=== PATIENT | female | born 1975 | race Native Hawaiian/Other Pacific Islander ===

== ENCOUNTER 2017-03-14 12:59 | Outpatient (CLI) | payer BC | END 2017-03-14 14:00 | disposition home or self-care (01) | LOC: MAMMO 12:59 | DX: Z12.31 Encounter for screening mammogram for malignant neoplasm of breast (principal) | CPT/HCPCS: G0202-TC ==

== ENCOUNTER 2017-06-13 07:38 | Observation (INO) | payer BC ==
[~2017-06-13] VITALS: Ht 162.6 cm; Wt 75.1 kg
[2017-06-13] VITALS (8 sets, daily range): BP systolic 119–182; BP diastolic 74–90; TEMP 98–98.7; Ht 162.6 cm; Wt 75.1 kg
[2017-06-13 08:47] LABS: PLATELET COUNT 477 K/uL (152-353)
[2017-06-13 08:54] LABS: POTASSIUM 3.9 mmol/L (3.6-5.2); SODIUM 137 mmol/L (136-145)
[2017-06-13 10:24] LABS: PARTIAL THROMBOPLASTIN TIME 25.6 SECONDS (24.5-33.6)
[2017-06-13] MEDS ORDERED: AMBIEN5 MG PO (15:19)
[2017-06-13] MEDS ORDERED: CRESTOR20 MG PO (15:20)
[2017-06-13] MEDS ORDERED: DOANS PO (15:21)
[2017-06-13] MEDS ORDERED: DULERA1 AE1 INH (15:22)
[2017-06-13] MEDS ORDERED: ESTER C PO (15:23)
[2017-06-13] MEDS ORDERED: LOFIBRA160 MG PO (15:27)
[2017-06-13] MEDS ORDERED: FLONASE AL50 MCG/ACT (15:33)
[2017-06-13] MEDS ORDERED: GRALISE600 MG PO (15:34)
[2017-06-13] MEDS ORDERED: FOLI1TAB26 PO (15:34)
[2017-06-13] MEDS ORDERED: LEXAPRO20 MG PO (15:35)
[2017-06-13] MEDS ORDERED: MECLIZINE25 MG PO (15:37)
[2017-06-13] MEDS ORDERED: MELOXICAM15 MG PO (15:37)
[2017-06-13] MEDS ORDERED: LO LOESTRIN PO (15:37)
[2017-06-13] MEDS ORDERED: HYDR5TAB9 PO (15:38)
[2017-06-13] MEDS ORDERED: PROTONIX20 MG PO (15:39)
[2017-06-13] MEDS ORDERED: PROAIR HFA INH (15:39)
[2017-06-13] MEDS ORDERED: MONT10TA PO (15:40)
[2017-06-13] MEDS ORDERED: RANITIDINE 150150 MG PO (15:40)
[2017-06-13] MEDS ORDERED: SYNTHROID137 MC1 PO (15:40)
[2017-06-13] MEDS ORDERED: TESSALON PER100 MG PO (15:41)
[2017-06-13] MEDS ORDERED: ALPR0.2566 PO (15:41)
[2017-06-13] MEDS ORDERED: METO50TA63 PO (15:41)
[2017-06-13] MEDS ORDERED: XYZAL5 MG PO (15:42)
[2017-06-13] MEDS ORDERED: TIZA4TAB5 PO (15:44)
[2017-06-13] MEDS ORDERED: ONDA4TAB3 PO (15:46)
[2017-06-14] VITALS: BP 124/85; TEMP 97.9
[2017-06-14 04:00] VITALS: BP 146/91; TEMP 98.1
[2017-06-14 06:14] LABS: PLATELET COUNT 431 K/uL (152-353)
[2017-06-14 06:43] LABS: POTASSIUM 3.7 mmol/L (3.6-5.2)
[2017-06-14 08:00] VITALS: BP 124/94; TEMP 98.8
[2017-06-14 12:00] VITALS: BP 116/76; TEMP 98.9
== END 2017-06-14 12:55 | disposition home or self-care (01) ==
LOC: ED 07:38 → MED/SURG 12:11
PROVIDERS: Family Medicine; ADMIT Specialist
DX: R07.89 Other chest pain (principal); R11.2 Nausea with vomiting, unspecified; E03.8 Other specified hypothyroidism
CPT/HCPCS: 36415; 36600; 80048; 80053; 80307; 81000; 82550; 82553; 82805; 83735; 84100; 84443; 84484; 85027; 85379; 85610; 85730; 93005; 94760; 96372; 96374; 96375; 96376; 99220; 99284; G0378; G0479; J1200; J1650; J1885; J2060; J2270; J2405; J2550

== ENCOUNTER 2017-07-26 12:53 | Outpatient (CLI) | payer BC ==
[~2017-07-26 12:53] MED LIST: ALPR0.2566 PO; AMBIEN5 MG PO; CRESTOR20 MG PO; DOANS PO; DULERA1 AE1 INH; ESTER C PO; FLONASE AL50 MCG/ACT; FOLI1TAB26 PO; GRALISE600 MG PO; HYDR5TAB9 PO; LEXAPRO20 MG PO; LO LOESTRIN PO; LOFIBRA160 MG PO; MECLIZINE25 MG PO; MELOXICAM15 MG PO; METO50TA63 PO; MONT10TA PO; ONDA4TAB3 PO; PROAIR HFA INH; PROTONIX20 MG PO; RANITIDINE 150150 MG PO; SYNTHROID137 MC1 PO; TESSALON PER100 MG PO; TIZA4TAB5 PO; XYZAL5 MG PO
== END 2017-07-26 14:30 | disposition home or self-care (01) ==
LOC: MAMMO 12:53
DX: R92.2 Inconclusive mammogram (principal)

== ENCOUNTER 2017-09-19 08:20 | Outpatient (CLI) | payer BC ==
[2017-09-19 09:26] LABS: POTASSIUM 4.1 mmol/L (3.6-5.2); SODIUM 138 mmol/L (136-145)
== END 2017-09-19 18:55 | disposition home or self-care (01) ==
LOC: LABW 08:20
PROVIDERS: Internal Medicine Cardiovascular Disease
DX: E78.4 Other hyperlipidemia (principal); Z79.899 Other long term (current) drug therapy; Z51.81 Encounter for therapeutic drug level monitoring
CPT/HCPCS: 36415; 80053; 80061

== ENCOUNTER 2018-08-16 11:39 | Outpatient (CLI) | payer BC | END 2018-08-16 20:59 | disposition home or self-care (01) | LOC: LABW 11:39 | DX: R19.7 Diarrhea, unspecified (principal) | CPT/HCPCS: 82272; 83630; 87015; 87045; 87324; 87328; 87329; 87449; 87899 ==

== ENCOUNTER 2018-11-14 09:45 | Outpatient (CLI) | payer OTHER | END 2018-11-14 21:03 | disposition home or self-care (01) | LOC: US 09:45 | DX: R16.1 Splenomegaly, not elsewhere classified (principal) ==

== ENCOUNTER 2019-01-01 13:59 | Outpatient (CLI) | payer OTHER | END 2019-01-01 19:50 | disposition home or self-care (01) | LOC: RAD 13:59 | DX: R50.9 Fever, unspecified (principal); R05 Cough | CPT/HCPCS: 87502 ==

== ENCOUNTER 2019-01-31 08:58 | Outpatient (CLI) | payer OTHER ==
[2019-01-31 09:42] LABS: POTASSIUM 3.5 mmol/L (3.6-5.2)
== END 2019-01-31 20:38 | disposition home or self-care (01) ==
LOC: LABW 08:58
PROVIDERS: Internal Medicine Cardiovascular Disease
DX: I10 Essential (primary) hypertension (principal); R07.89 Other chest pain; E78.5 Hyperlipidemia, unspecified; E03.2 Hypothyroidism due to medicaments and other exogenous substances
CPT/HCPCS: 36415; 80053; 80061; 85651; 86140

== ENCOUNTER 2020-06-21 10:23 | Outpatient (CLI) | payer OTHER | END 2020-06-21 21:11 | disposition home or self-care (01) | LOC: RAD 10:23 | DX: M06.4 Inflammatory polyarthropathy (principal) ==

== ENCOUNTER 2020-08-06 14:33 | Outpatient (CLI) | payer OTHER ==
[2020-08-06 14:53] LABS: PLATELET COUNT 556 K/uL (152-353)
[2020-08-06 15:22] LABS: POTASSIUM 3.8 mmol/L (3.6-5.2)
== END 2020-08-06 22:29 | disposition home or self-care (01) ==
LOC: RAD 14:33
PROVIDERS: Internal Medicine
DX: R06.02 Shortness of breath (principal); R50.9 Fever, unspecified; R11.0 Nausea; I10 Essential (primary) hypertension
CPT/HCPCS: 36415; 80053; 82728; 85027; 86140

== ENCOUNTER 2020-08-29 18:09 | Emergency (ER) | payer OTHER ==
[~2020-08-29] VITALS: Ht 162.6 cm; Wt 65.8 kg
[2020-08-29 18:28] VITALS: TEMP 98.9
[2020-08-29 20:46] VITALS: BP 149/92
== END 2020-08-29 20:57 ==
LOC: ED 18:09
DX: S02.2XXA Fracture of nasal bones, initial encounter for closed fracture (principal); M62.838 Other muscle spasm; W01.190A Fall on same level from slipping, tripping and stumbling with subsequent striking against furniture, initial encounter; Y92.89 Other specified places as the place of occurrence of the external cause
CPT/HCPCS: 99283

== ENCOUNTER 2020-09-17 12:28 | Outpatient (CLI) | payer OTHER | END 2020-09-17 23:53 | disposition home or self-care (01) | LOC: RAD 12:28 | PROVIDERS: ATTEND Internal Medicine | DX: J15.9 Unspecified bacterial pneumonia (principal) | CPT/HCPCS: 87635; U0003 ==

== ENCOUNTER 2020-11-03 08:28 | Outpatient (CLI) | payer OTHER | END 2020-11-03 20:26 | disposition home or self-care (01) | LOC: US 08:28 | PROVIDERS: ATTEND Nurse Practitioner Family | DX: E55.9 Vitamin D deficiency, unspecified (principal); E56.8 Deficiency of other vitamins; E79.0 Hyperuricemia without signs of inflammatory arthritis and tophaceous disease; H16.223 Keratoconjunctivitis sicca, not specified as Sjogren's, bilateral; M85.89 Other specified disorders of bone density and structure, multiple sites; R70.0 Elevated erythrocyte sedimentation rate; R76.0 Raised antibody titer; R94.5 Abnormal results of liver function studies ==

== ENCOUNTER 2020-12-18 08:59 | Outpatient (CLI) | payer OTHER ==
[2020-12-18 09:36] LABS: POTASSIUM 3.7 mmol/L (3.6-5.2)
== END 2020-12-18 20:04 | disposition home or self-care (01) ==
LOC: LABW 08:59
PROVIDERS: ATTEND Internal Medicine Cardiovascular Disease
DX: I10 Essential (primary) hypertension (principal); E78.5 Hyperlipidemia, unspecified; Z79.899 Other long term (current) drug therapy
CPT/HCPCS: 36415; 80053; 80061

== ENCOUNTER 2021-06-02 11:12 | Outpatient (CLI) | payer OTHER | END 2021-06-02 19:24 | disposition home or self-care (01) | LOC: RAD 11:12 | PROVIDERS: ATTEND Nurse Practitioner Family | DX: M06.4 Inflammatory polyarthropathy (principal); M79.641 Pain in right hand; M79.672 Pain in left foot; M85.89 Other specified disorders of bone density and structure, multiple sites ==

== ENCOUNTER 2021-06-18 13:33 | Outpatient (CLI) | payer OTHER ==
[2021-06-18 14:14] LABS: PLATELET COUNT 431 K/uL (152-353)
[2021-06-18 14:19] LABS: POTASSIUM 3.4 mmol/L (3.6-5.2)
== END 2021-06-18 20:20 | disposition home or self-care (01) ==
LOC: RAD 13:33
PROVIDERS: ATTEND Nurse Practitioner Family
DX: Z20.828 Contact with and (suspected) exposure to other viral communicable diseases (principal)
CPT/HCPCS: 36415; 80053; 82728; 85027; 85379; 86140

== ENCOUNTER 2021-07-06 10:06 | Outpatient (CLI) | payer OTHER | END 2021-07-06 22:16 | disposition home or self-care (01) | LOC: RAD 10:06 | PROVIDERS: ATTEND Nurse Practitioner Family | DX: R05 Cough (principal) ==

== ENCOUNTER 2021-09-25 08:28 | Outpatient (CLI) | payer OTHER | END 2021-09-25 19:00 | disposition home or self-care (01) | LOC: RAD 08:28 | PROVIDERS: ATTEND Student in an Organized Health Care Education/Training Program | DX: M85.88 Other specified disorders of bone density and structure, other site (principal) ==

== ENCOUNTER 2022-05-31 11:59 | Outpatient (CLI) | payer OTHER | END 2022-05-31 18:59 | disposition home or self-care (01) | LOC: RAD 11:59 | PROVIDERS: ATTEND Internal Medicine | DX: R05.3 Chronic cough (principal); Z86.16 Personal history of COVID-19; Z09 Encounter for follow-up examination after completed treatment for conditions other than malignant neoplasm ==

== ENCOUNTER 2023-05-31 08:37 | Outpatient (CLI) | payer OTHER | END 2023-05-31 20:22 | disposition home or self-care (01) | LOC: RAD 08:37 | PROVIDERS: ATTEND Nurse Practitioner Family | DX: E55.9 Vitamin D deficiency, unspecified (principal); E79.0 Hyperuricemia without signs of inflammatory arthritis and tophaceous disease; M06.4 Inflammatory polyarthropathy; M79.672 Pain in left foot; M85.89 Other specified disorders of bone density and structure, multiple sites ==

== ENCOUNTER 2023-07-05 10:24 | Outpatient (CLI) | payer OTHER | END 2023-07-05 18:58 | disposition home or self-care (01) | LOC: RAD 10:24 | PROVIDERS: ATTEND Nurse Practitioner Family | DX: E79.0 Hyperuricemia without signs of inflammatory arthritis and tophaceous disease (principal); H16.223 Keratoconjunctivitis sicca, not specified as Sjogren's, bilateral; M06.4 Inflammatory polyarthropathy; M54.2 Cervicalgia; M54.51 Vertebrogenic low back pain ==